=== PATIENT | male | born 1985 | race Caucasian/White ===

== ENCOUNTER 2018-08-27 03:19 | Emergency (ER) | payer BC ==
[~2018-08-27] VITALS: Ht 177.8 cm; Wt 99.8 kg
[2018-08-27 03:41] LABS: BILIRUBIN,URINE NEGATIVE (NEGATIVE); CLARITY,URINE CLEAR; COLOR,URINE YELLOW; GLUCOSE, URINE (UA) NEGATIVE (NEGATIVE); KETONES,URINE 1+ (NEGATIVE); LEUKOCYTE ESTERASE ,URINE NEGATIVE (NEGATIVE); NITRITE,URINE NEGATIVE (NEGATIVE); PH,URINE 5 (5-9); PROTEIN,URINE 1+ (NEGATIVE); UROBILINOGEN,URINE NORMAL (NORMAL)
--- NOTE | 2018-08-27 03:46 | ED GI ---
General Chief Complaint: Abdominal/GI Problems Stated Complaint: ABD PAIN Source of Information: Patient History of Present Illness Date Seen by Provider: August 27, 2018 Time Seen by Provider: 03:35 Initial Comments PT ARRIVES VIA POV FROM HOME C/O ABDOMINAL PAIN FOR 8-9 DAYS PAIN IS OF THE ENTIRE ABDOMEN AND HIS ENTIRE BACK PAIN IS CONSTANT CRAMPING + NAUSEA, NO VOMITING HAS HAD DIARRHEA OFF AND ON THE 8-9 DAYS, BUT TODAY HAS HAD DIARRHEA "TOO MANY TIMES TO COUNT", STATES HE HAS BEEN HAVING DIARRHEA AT LEAST EVERY HOUR ALL DAY TODAY --NO BLACK/BLOODY/TARRY STOOLS NO URINARY SYMPTOMS AND VOIDING A NORMAL AMOUNT NO FEVER NO DIZZINESS HAS HAD A LITTLE BIT TO EAT AND DRINK TODAY, BUT NOT MUCH NORMAL NOTHING WORSENS OR IMPROVES SYMPTOMS NO SIGNIFICANT GI PROBLEMS IN THE PAST NO KNOWN SICK CONTACTS WITH SIMILAR NO SUSPICIOUS FOODS HAS NOT TAKEN ANYTHING FOR SYMPTOMS SAW HIS PCP, DR. THORNTON TODAY FOR THIS PROBLEM AND HAD LAB AND ULTRASOUND DONE , REPORTEDLY NORMAL. PER PT HIDA SCAN WAS ORDERED--APPOINTMENT 09/14/18 PCP: DR. THORNTON Allergies and Home Medications Allergies Coded Allergies: No Known Drug Allergies (Unverified , 08/27/18) Home Medications Dicyclomine HCl 20 Mg Tablet, 20 MG PO Q6H Prescribed by: FERNANDEZ JUDD on 08/27/18512 Hyoscyamine Sulfate 0.125 Mg Tab.subl, 1-2 TAB SL Q4H Prescribed by: FERNANDEZ JUDD on 08/27/1814 Lactobacillus Acidophilus 1 Each Capsule, 2 EACH PO QID Prescribed by: FERNANDEZ JUDD on 08/27/18512 Ondansetron 8 Mg Tab.rapdis, 8 MG PO Q6H Prescribed by: FERNANDEZ JUDD on 08/27/18 0514 Patient Home Medication List Home Medication List Reviewed: Yes Review of Systems Review of Systems Constitutional: no symptoms reported; No dizziness, No fever Respiratory: No Symptoms Reported Cardiovascular: No Symptoms Reported Gastrointestinal: See HPI, Abdominal Pain, Diarrhea, Nausea; Denies Vomiting Genitourinary: No Symptoms Reported Musculoskeletal: no symptoms reported Skin: no symptoms reported Psychiatric/Neurological: No Symptoms Reported Endocrine: No Symptoms Reported Past [id number]-Dwgyzj-Wnnfps Hx Patient Social History Alcohol Use: Denies Use Recreational Drug Use: No Smoking Status: Never a Smoker Recent Foreign Travel: No Contact w/Someone Who Travel: No Past Medical History Surgeries: No Respiratory: No Neurological: No Genitourinary: No Gastrointestinal: No Musculoskeletal: No Endocrine: No HEENT: No Psychosocial: No Integumentary: No Blood Disorders: No Physical Exam Vital Signs Vital Signs - First Documented 08/27/18 03:32 Temp 98.0 Pulse 74 Resp 18 B/P (MAP) 149/90 (109) Pulse Ox 99 O2 Delivery Room Air Capillary Refill : Height/Weight/BMI Height: '" Weight: lbs. oz. 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 ) Skin: normal color, warm/dry Progress/Results/Core Measures Results/Orders Lab Results Laboratory Tests Test 08/27/18 03:35 08/27/18 03:45 Range/Units Urine Color YELLOW Urine Clarity CLEAR Urine pH 5 5-9 Urine Specific [place] 1.030 H 1.016-1.022 Urine Protein 1+ H NEGATIVE Urine Glucose (UA) NEGATIVE NEGATIVE Urine Ketones 1+ H NEGATIVE Urine Nitrite NEGATIVE NEGATIVE Urine Bilirubin NEGATIVE NEGATIVE Urine Urobilinogen NORMAL NORMAL MG/DL Urine Leukocyte Esterase NEGATIVE NEGATIVE Urine RBC (Auto) NEGATIVE NEGATIVE Urine RBC NONE /HPF Urine WBC NONE /HPF Urine Squamous Epithelial Cells 0-2 /HPF Urine Crystals NONE /LPF Urine Bacteria NEGATIVE /HPF Urine Casts NONE /LPF Urine Mucus MODERATE H /LPF Urine Culture Indicated NO Urine Opiates Screen NEGATIVE NEGATIVE Urine Oxycodone Screen NEGATIVE NEGATIVE Urine Methadone Screen NEGATIVE NEGATIVE Urine Propoxyphene Screen NEGATIVE NEGATIVE Urine Barbiturates Screen NEGATIVE NEGATIVE Ur Tricyclic Antidepressants Screen NEGATIVE NEGATIVE Urine Phencyclidine Screen NEGATIVE NEGATIVE Urine Amphetamines Screen NEGATIVE NEGATIVE Urine Methamphetamines Screen NEGATIVE NEGATIVE Urine Benzodiazepines Screen NEGATIVE NEGATIVE Urine Cocaine Screen NEGATIVE NEGATIVE Urine Cannabinoids Screen NEGATIVE NEGATIVE White Blood Count 7.6 4.3-11.0 10^3/uL Red Blood Count 5.85 4.35-5.85 10^6/uL Hemoglobin 16.9 13.3-17.7 G/DL Hematocrit 48 40-54 % Mean Corpuscular Volume 81 80-99 FL Mean Corpuscular Hemoglobin 29 25-34 PG Mean Corpuscular Hemoglobin Concent 36 32-36 G/DL Red Cell Distribution Width 13.0 10.0-14.5 % Platelet Count 290 130-400 10^3/uL Mean Platelet Volume 10.3 7.4-10.4 FL Neutrophils (%) (Auto) 68 42-75 % Lymphocytes (%) (Auto) 24 12-44 % Monocytes (%) (Auto) 6 0-12 % Eosinophils (%) (Auto) 1 0-10 % Basophils (%) (Auto) 0 0-10 % Neutrophils # (Auto) 5.2 1.8-7.8 X 10^3 Lymphocytes # (Auto) 1.8 1.0-4.0 X 10^3 Monocytes # (Auto) 0.5 0.0-1.0 X 10^3 Eosinophils # (Auto) 0.1 0.0-0.3 10^3/uL Basophils # (Auto) 0.0 0.0-0.1 10^3/uL Sodium Level 140 135-145 MMOL/L Potassium Level 3.9 3.6-5.0 MMOL/L Chloride Level 102 98-107 MMOL/L Carbon Dioxide Level 24 21-32 MMOL/L Anion Gap 14 5-14 MMOL/L Blood Urea Nitrogen 14 7-18 MG/DL Creatinine 0.92 0.60-1.30 MG/DL Estimat Glomerular Filtration Rate > 60 BUN/Creatinine Ratio 15 Glucose Level 129 H 70-105 MG/DL Calcium Level 10.6 H 8.5-10.1 MG/DL Corrected Calcium 8.5-10.1 MG/DL Magnesium Level 2.3 1.8-2.4 MG/DL Total Bilirubin 0.7 0.1-1.0 MG/DL Aspartate Amino Transf (AST/SGOT) 23 5-34 U/L Alanine Aminotransferase (ALT/SGPT) 41 0-55 U/L Alkaline Phosphatase 71 40-136 U/L Total Protein 8.2 6.4-8.2 GM/DL Albumin 5.1 H 3.2-4.5 GM/DL Amylase Level 28 25-125 U/L Lipase 14 8-78 U/L Serum Alcohol < 10 <10 MG/DL My Orders Orders - FERNANDEZ JUDD DO Ed Iv/Invasive Line Start (08/27/18 03:35) Amylase (08/27/18 03:35) Cbc With Automated Diff (08/27/18 03:35) Comprehensive Metabolic Panel (08/27/18 03:35) Drug Screen Stat (Urine) (08/27/18 03:35) Lipase (08/27/18 03:35) Magnesium (08/27/18 03:35) Ua Culture If Indicated (08/27/18 03:35) Alcohol (08/27/18 03:35) Ed Iv/Invasive Line Start (08/27/18 03:52) Lactated Ringers (Lr 1000 Ml Iv Solution (08/27/18 03:52) Ondansetron Injection (Zofran Injectio (08/27/18 04:00) Ct Abdomen/Pelvis W (08/27/18 04:01) Acute Abd Series (08/27/18 04:01) Hyoscyamine Sl Tablet (Levsin Sl Tablet) (08/27/18 04:15) Iohexol Injection (Omnipaque 350 Mg/Ml 1 (08/27/18 04:45) Received Contrast (Hold Metformin- Contr (08/27/18 04:45) Ketorolac Injection (Toradol Injection) (08/27/18 05:15) Dicyclomine Capsule (Bentyl Capsule) (08/27/18 05:15) Medications Given in ED Current Medications Medications Dose Ordered Sig/Nathanael Route Start Time Stop Time Status Last Admin Dose Admin Hyoscyamine Sulfate 0.25 mg ONCE ONCE PO 08/27/18 04:15 08/27/18 04:16 UNV 08/27/18 04:13 0.25 MG Iohexol 100 ml ONCE ONCE IV 08/27/18 04:45 08/27/18 04:46 DC 08/27/18 04:38 100 ML Lactated Ringer's 1,000 ml @ 0 mls/hr Q0M ONCE IV 08/27/18 03:52 08/27/18 03:53 UNV 08/27/18 04:14 0 MLS/HR Ondansetron HCl 4 mg ONCE ONCE IVP 08/27/18 04:00 08/27/18 04:01 UNV 08/27/18 04:13 4 MG Vital Signs/I&O 08/27/18 03:32 Temp 98.0 Pulse 74 Resp 18 B/P (MAP) 149/90 (109) Pulse Ox 99 O2 Delivery Room Air Progress Progress Note : Progress Note NO DIARRHEA DURING ER STAY NAUSEA IS GONE AND CRAMPING IS IMPROVED AT DISMISSAL Diagnostic Imaging Comments ACUTE ABDOMEN XRAYS--NO ACUTE PROCESS, PENDING RADIOLOGIST REVIEW CT ABDOMEN/PELVIS--HEPATIC STEATOSIS, NO ACUTE PROCESS, PER [facility] VIA FAX @ [phone] Reviewed: Reviewed by Me Departure Impression Primary Impression: Gastroenteritis Disposition: HOME, SELF-CARE Condition: Improved Departure-Patient Inst. Referrals: GEOFFREY THORNTON MD (PCP/Family) Primary Care Physician Patient Instructions: [id number] Add. Discharge Instructions: LOTS OF CLEAR LIQUIDS--WATER, BROTH, JELLO, GATORADE BRATS DIET--BANANAS, RICE, APPLESAUCE, TOAST, SALTINES FOLLOW UP WITH YOUR DR IN 2-3 DAYS FOR FURTHER CARE All discharge instructions reviewed with patient and/or family. Voiced understanding. Scripts Ondansetron (Ondansetron Odt) 8 Mg Tab.rapdis 8 MG PO Q6H for Nausea/Vomiting, #10 TAB Prov: FERNANDEZ JUDD DO 08/27/18 Hyoscyamine Sulfate (Levsin-Sl) 0.125 Mg Tab.subl 1-2 TAB SL Q4H for Abdominal Pain, #15 TAB Prov: FERNANDEZ JUDD DO 08/27/18 Dicyclomine HCl (Dicyclomine HCl) 20 Mg Tablet 20 MG PO Q6H for Abdominal Pain, #20 TAB Prov: FERNANDEZ JUDD DO 08/27/18 Lactobacillus Acidophilus (Acidophilus) 1 Each Capsule 2 EACH PO QID, #80 CAP Prov: FERNANDEZ JUDD DO 08/27/18 FERNANDEZ JUDD DO August 27, 2018 03:46
[2018-08-27 03:50] LABS: BACTERIA,URINE NEGATIVE /HPF; SQUAMOUS EPITHELIAL CELL,UR 0-2 /HPF
[2018-08-27] MEDS ORDERED: LACTATED RINGERS 1,000 ML IV ONE ×2 (03:52→04:08)
[2018-08-27 03:56] LABS: AMPHETAMINE SCREEN, URINE NEGATIVE (NEGATIVE); BARBITURATE SCREEN URINE NEGATIVE (NEGATIVE); BENZODIAZEPINES SCREEN URINE NEGATIVE (NEGATIVE); CANNABINOID SCREEN, URINE NEGATIVE (NEGATIVE); COCAINE SCREEN URINE NEGATIVE (NEGATIVE); METHADONE STAT NEGATIVE (NEGATIVE); METHAMPHETAMINE SCREEN URINE S NEGATIVE (NEGATIVE); OPIATE SCREEN URINE NEGATIVE (NEGATIVE); OXYCODONE STAT NEGATIVE (NEGATIVE); PROPOXYPHENE STAT NEGATIVE (NEGATIVE); TRICYCLIC ANTIDEPRESSANTS SCRE NEGATIVE (NEGATIVE)
[2018-08-27 03:59] LABS: BASOPHILS % (AUTO) 0 % (0-10); EOSINOPHILS # (AUTO) 0.1 10^3/uL (0.0-0.3); EOSINOPHILS % (AUTO) 1 % (0-10); HEMATOCRIT 48 % (40-54); HEMOGLOBIN 16.9 G/DL (13.3-17.7); LYMPHOCYTES # (AUTO) 1.8 X 10^3 (1.0-4.0); LYMPHOCYTES % (AUTO) 24 % (12-44); MEAN CORPUSCULAR HEMOGLOBIN 29 PG (25-34); MEAN CORPUSCULAR HGB CONC 36 G/DL (32-36); MEAN CORPUSCULAR VOLUME 81 FL (80-99); MEAN PLATELET VOLUME 10.3 FL (7.4-10.4); MONOCYTES # (AUTO) 0.5 X 10^3 (0.0-1.0); MONOCYTES % (AUTO) 6 % (0-12); NEUTROPHILS # (AUTO) 5.2 X 10^3 (1.8-7.8); NEUTROPHILS % (AUTO) 68 % (42-75); PLATELET COUNT 290 10^3/uL (130-400); WHITE BLOOD COUNT 7.6 10^3/uL (4.3-11.0)
[2018-08-27] MEDS ORDERED: ONDANSETRON 4 MG/2 ML (SDV) Z0FRAN IVP ONE (04:00)
[2018-08-27] MEDS ORDERED: ONDANSETRON 4 MG/2 ML (SDV) Z0FRAN ONE (04:08)
[2018-08-27] MEDS ORDERED: HYOSCYAMINE 0.125 MG (LEVSIN) TAB ONE (04:08)
[2018-08-27] MEDS ORDERED: HYOSCYAMINE 0.125 MG (LEVSIN) TAB PO ONE (04:15)
[2018-08-27 04:19] LABS: ALANINE AMINOTRANSFERASE 41 U/L (0-55); ALBUMIN 5.1 GM/DL (3.2-4.5); ALKALINE PHOSPHATASE 71 U/L (40-136); AMYLASE 28 U/L (25-125); BILIRUBIN,TOTAL 0.7 MG/DL (0.1-1.0); BUN/CREATININE RATIO 15; CALCIUM 10.6 MG/DL (8.5-10.1); CARBON DIOXIDE 24 MMOL/L (21-32); CHLORIDE 102 MMOL/L (98-107); CREATININE SERUM 0.92 MG/DL (0.60-1.30); GFR ESTIMATED > 60; GLUCOSE 129 MG/DL (70-105); LIPASE 14 U/L (8-78); MAGNESIUM 2.3 MG/DL (1.8-2.4); POTASSIUM 3.9 MMOL/L (3.6-5.0); SODIUM 140 MMOL/L (135-145); TOTAL PROTEIN 8.2 GM/DL (6.4-8.2)
[2018-08-27] MEDS ORDERED: HOLD METFORMIN - RECEIVED CONTRAST 20 ML VIAL IV SCH (04:45)
[2018-08-27] MEDS ORDERED: IOHEXOL 350 MG/ML 100 ML (OMNIPAQUE 350) VIAL IV ONE (04:45)
[2018-08-27] MEDS ORDERED: LACT1CAP8 PO (05:13)
[2018-08-27] MEDS ORDERED: DICY20TA10 PO (05:13)
[2018-08-27] MEDS ORDERED: HYOS0.1283 SL (05:14)
[2018-08-27] MEDS ORDERED: ONDA8TAB13 PO (05:14)
[2018-08-27] MEDS ORDERED: KETOROLAC 30 MG/ML VIAL IVP ONE (05:15)
[2018-08-27] MEDS ORDERED: DICYCLOMINE 10 MG (BENTYL) CAP PO SCH (05:15)
--- NOTE | 2018-08-27 05:15 | Diagnostic Imaging Report ---
INDICATION: Abdominal pain. PA chest, supine and upright abdominal images are obtained. FINDINGS: Lungs are clear. There is no intraperitoneal free air. Bowel gas pattern is normal. There are no pathologic masses or calcifications. IMPRESSION: No acute abnormalities in the abdomen. Dictated by: Dictated on workstation # [id number]
--- NOTE | 2018-08-27 05:27 | Diagnostic Imaging Report ---
PROCEDURE: CT abdomen and pelvis with contrast. TECHNIQUE: Multiple contiguous axial images were obtained through the abdomen and pelvis after administration of intravenous contrast. Auto Exposure Controls were utilized during the CT exam to meet ALARA standards for radiation dose reduction. INDICATION: Abdominal pain x8 days. FINDINGS: Lung bases are clear. Liver appears normal. Gallbladder is decompressed. Pancreas is normal. Spleen is not enlarged. Kidneys and adrenals appear normal. Small bowel is not dilated. The appendix is normal. Colon appears normal. There is no intraperitoneal free air or free fluid. IMPRESSION: No acute abnormality is seen in the abdomen or pelvis. I agree with preliminary interpretation. Dictated by: Dictated on workstation # [id number]
[2018-08-27] MEDS ORDERED: KETOROLAC 30 MG/ML VIAL ONE (05:29)
[2018-08-27] MEDS ORDERED: DICYCLOMINE 10 MG (BENTYL) CAP ONE (05:35)
[2018-08-27 05:51] VITALS: BP 143/93
== END 2018-08-27 05:56 | disposition home or self-care (01) ==
LOC: EDUNIT# 03:19 → ER 03:23
DX: K52.9 Noninfective gastroenteritis and colitis, unspecified (principal)
CPT/HCPCS: 36415; 74022; 74177; 80053; 80306; 80320; 81000; 82150; 83690; 83735; 85025

== ENCOUNTER 2018-11-10 16:02 | Outpatient (CLI) | payer BC ==
[~2018-11-10 16:02] MED LIST: DICY20TA10 PO; HYOS0.1283 SL; LACT1CAP8 PO; ONDA8TAB13 PO
== END 2018-11-10 16:33 | disposition home or self-care (01) ==
LOC: SLEEP 16:02
PROVIDERS: ATTEND Otolaryngology Otolaryngology/Facial Plastic Surgery
DX: G47.33 Obstructive sleep apnea (adult) (pediatric) (principal); G47.10 Hypersomnia, unspecified; Z90.49 Acquired absence of other specified parts of digestive tract